=== PATIENT | female | born 1970 | race Caucasian/White ===

== ENCOUNTER 2017-01-02 15:32 | Inpatient (IN) | payer BC ==
--- NOTE | ~2017-01-02 | DS ---
Discharge Summary [facility] [address] [place]. [address] NAME: ANNEMARIE LOVING : 66 STATUS : DIS IN PAT#: [id number] AGE: 46 ADM/REG DATE : 01/02/17 MR#: [id number] REPORT SERV DATE: 01/06/17 DICTATED BY: AARON AVENDAÑO DATE: 01/05/17 REPORT STATUS : Draft TRANSCRIBED BY: MODL DATE: 01/05/17 ADMISSION DATE: 01/02/2017 DISCHARGE DATE: 01/05/2017 PRINCIPAL DIAGNOSIS: Acute right-sided pulmonary embolism. SECONDARY DIAGNOSES: Chronic jugular vein thrombus; chronic obstructive pulmonary disease; type 2 diabetes, exacerbated by steroids; obesity hypoventilation syndrome with cor pulmonale and peripheral edema; hypoxemia with respiratory failure. HISTORY OF PRESENT ILLNESS: Please see Dr. Sparks's dictation on 01/02. HOSPITAL COURSE: Admitted with acute respiratory failure with hypoxemia. Found to have evidence of a COPD exacerbation, but a CT was positive for a thrombus in the right segmental pulmonary artery. There was concern about a jugular vein thrombosis, this was confirmed on echocardiography; however, the vein was well canalized, consistent with a chronic thrombus with acute extension having likely been embolized. No lower extremity venous thrombosis was identified. The patient was heparinized. She was transitioned to Xarelto therapy. Meanwhile, her COPD got much better. She had diuresed successfully. Steroids were transitioned to p.o. While sugar remained high, this had improved as her prednisone dose had weaned. She was saturating well on her baseline oxygen prescription by 01/05 and was able to be released in satisfactory condition with a low-sodium 1800-calorie ADA diet, activity as tolerated, following up with Dr. Grey Cherry in one to two weeks. Continue Xarelto 15 b.i.d., transitioning to 20 daily after a week; Mucomyst 600 b.i.d. for a week; Lasix 40 b.i.d., she declined to transition to Demadex therapy; 10 per day; magnesium oxide 100 per day; prednisone taper; nicotine patch, but instructed not to smoke; Neurontin 600 t.i.d.; NovoLog 70/30 t.i.d.; metformin 1000 b.i.d.; Dulera; Protonix. She was taken off any further antibiotic therapy. ALLIE/MICKEY Aaron Avendaño M.D. / [id number] CC: Kaykay Foy M.D.
--- NOTE | ~2017-01-02 | HP ---
History And Physical [facility] [id number] [place]. [address] NAME: ANNEMARIE LOVING : 66 STATUS : ADM IN [facility]#: [id number] AGE: 46 ADM/REG DATE : 01/02/17 MR#: [id number] REPORT SERV DATE: 01/03/17 DICTATED BY: BROOKE BARAJAS DATE: 01/03/17 REPORT STATUS : Draft TRANSCRIBED BY: MICKEY DATE: 01/03/17 DATE OF ADMISSION: 01/02/2017 CHIEF COMPLAINT: A 46-year-old female, presenting with shortness of breath and chest pain, evidence of pulmonary embolism. HISTORY OF PRESENTING ILLNESS: The patient's history was obtained through careful interview with the patient, coupled with review of [facility] medical records. The patient states that she has been feeling bad "for couple of months" with intermittent shortness of breath and chest pain issues. She apparently was admitted to [facility] in November 2016 with what sounds like a COPD exacerbation with possible pneumonia. She was apparently in "coma" and lost memory for several days, was admitted to the intensive care unit. She was then discharged and at home for about two weeks when she became ill again, then she presented to [facility] in [place] and was admitted for "a couple of days" with what was called "a virus" in her lungs. She completed that hospital stay, but has still felt ill, and she states that over these last few days, she has had increasing shortness of breath and chest pain once again. She describes chest pain in the middle of her chest that radiates to the right side and radiates up into the right shoulder, sharp quality, 9/10 severity, exacerbated by deep breathing. She has also had early satiety with nausea, vomiting, and difficulty eating. She has had facial swelling on the left side and also the left arm has been swelling too. This has been over about a month's period of time. She has also describes swelling in her throat on the left side more than the right. No change in lower extremity edema and no lower extremity pain. No abdominal pain. No abdominal distention. No change of bowel or bladder habit. REVIEW OF SYSTEMS: Otherwise, a 14-point review of systems was obtained and was negative. PAST MEDICAL HISTORY: 1. COPD, on chronic nasal cannula oxygen. 2. Congestive heart failure. 3. Obesity hypoventilation syndrome with obstructive sleep apnea, on chronic CPAP or BiPAP. 4. DVT of the right arm "couple years" ago, but taken off blood thinner. History And Physical [address] [place]. [address] NAME: ANNEMARIE LOVING : 66 STATUS : ADM IN [facility]#: [id number] AGE: 46 ADM/REG DATE : 01/02/17 MR#: [id number] REPORT SERV DATE: 01/03/17 DICTATED BY: BROOKE BARAJAS DATE: 01/03/17 REPORT STATUS : Draft TRANSCRIBED BY: MICKEY DATE: 01/03/17 5. Diabetes with neuropathy. 6. Cor pulmonale. 7. Restless legs syndrome. 8. Iron-deficiency anemia. 9. Proteinuria. PAST SURGICAL HISTORY: 1. Breast reduction. 2. Cholecystectomy. ALLERGIES: NO KNOWN DRUG ALLERGIES. SOCIAL HISTORY: The patient is a smoker. Drinks occasional alcohol. She is , lives with daughter and son. She has three children total, many grandchildren. She lives in [place], [place]. FAMILY HISTORY: Includes heart disease, diabetes, COPD. CURRENT MEDICATIONS: Include albuterol inhaler, Symbicort two puffs inhaled twice a day, Dexilant 60 mg p.o. daily, dextromethorphan, doxycycline 100 mg p.o. b.i.d., Lasix 40 mg p.o. b.i.d., Neurontin 600 mg p.o. b.i.d., NovoLog 70/30, 80 units subcutaneously three times a day, lisinopril 20 mg p.o. daily, metformin extended release 1000 mg p.o. b.i.d., nicotine patch, Mirapex 1.5 mg p.o. daily, Zocor 20 mg p.o. daily, Spiriva inhaled daily. PHYSICAL EXAMINATION: VITAL SIGNS: Temperature 98.2, pulse 98, blood pressure 130/47, respiratory rate 18, and O2 saturation 95% on 4 L nasal cannula. GENERAL: A chronically ill-appearing female, in evidence of distress secondary to shortness of breath and described chest pain. HEENT: Pupils equal, round, and reactive to light. No conjunctival pallor. No scleral icterus. Nares are patent. Oropharynx is clear of obstruction. Moist mucous membranes. NECK: Trachea midline. No thyromegaly. LYMPH: No cervical lymphadenopathy. No supraclavicular lymphadenopathy. RESPIRATORY: Does have scattered expiratory wheezes and prolonged expiratory phase. Labored respiratory effort. No focal egophony. No rales. The patient has a labored respiratory effort. CARDIOVASCULAR: Regular rate and rhythm. No murmurs, rubs, or gallops. The patient has no lower extremity edema. There may be some slight edema nonpitting in the left upper extremity compared to the right. ABDOMEN: Soft, nontender, nondistended. Normal bowel sounds auscultated throughout. No organomegaly. The patient has a central pattern of morbid obesity. DERMATOLOGICAL: Warm and dry extremities. No pallor. No cyanosis. PSYCHIATRIC: Normal affect. Good mood. Alert and oriented x3. LABORATORY DATA: White blood cell count 9.0, hemoglobin 11.6, hematocrit 38, platelets 292. Sodium 142, potassium 3.7, chloride 102, bicarbonate 33, BUN 6, creatinine 0.6, glucose 147, brain natriuretic peptide 29. Troponin negative. INR 1.0. ABG demonstrates pH 7.39, a History And Physical [address] [address] NAME: ANNEMARIE LOVING : 66 STATUS : ADM IN [facility]#: [id number] AGE: 46 ADM/REG DATE : 01/02/17 MR#: [id number] REPORT SERV DATE: 01/03/17 DICTATED BY: BROOKE BARAJAS DATE: 01/03/17 REPORT STATUS : Draft TRANSCRIBED BY: MODL DATE: 01/03/17 PaCO2 of 43, a PaO2 of 63, and a bicarbonate of 26. STUDIES: 1. CT angiogram of the chest shows right pulmonary embolism. 2. Venous Doppler ultrasound of upper extremities apparently shows a jugular vein DVT (I believe it was reported on the left side). 3. EKG by my own evaluation shows sinus tachycardia, right bundle-branch block. ASSESSMENT AND PLAN: 1. Acute pulmonary embolism. Place on heparin drip IV. Check an echocardiogram to rule out significant right ventricular strain. 2. Jugular vein thrombosis. 3. Chronic obstructive pulmonary disease exacerbation. Place on IV Solu-Medrol, doxycycline, DuoNeb nebulizers. 4. Obesity hypoventilation syndrome. Place on nightly BiPAP. 5. Diabetes. Check hemoglobin A1c. Continue basal insulin and sliding scale insulin. KPL/MODL Brooke Barajas M.D. / [id number] CC: MD Grey Shea M.D.
[~2017-01-02 15:32] MED LIST: ALEVE220 MG PO; BEN25 PO; BENADRYL 50 MG50 MG PO; C5; COUMADIN4 MG PO; DUONEB INH; FESO4 PO; FORTAMET1000 MG PO; GLUCOPHAGE1000 MG PO; GLUCPH8 PO; HABIT21 TOP; INSNOV7030 SQ; KAPIDEX60 MG PO; L20 PO; L40 PO; MIRAPEX1 MG PO; MIRAPEX1.5 MG PO; MIRAPEX250 PO; MUCINEX600 MG PO; MUCUSRELIEF PO; NEUR300 PO; NEUR600 PO; NOVOLOGMIX; NOVOLOGMIX SC; P20 PO; PRIN20 PO; PROVENTSOL INH; PROVHFA INH; SPIRIVA INH; STERAPDS12 PO; SYMBICORT 160/41 INH INH; T PO; VIB100 PO; Z-PAK PO; ZESTRIL20 MG PO; ZITH250 PO; ZOCOR20 PO; [UNRECOGNIZED DRUG - REMARK] PO
[2017-01-02 16:40] LABS: BASOPHILS 0.1 %; BASOPHILS ABSOLUTE 0.01 10/3/uL (0.0-0.16); EOSINOPHILS 1.3 %; EOSINOPHILS ABSOLUTE 0.12 10/3/uL (0.0-0.53); ER CBC TAT 0 Hrs 05 Mins; HEMOGLOBIN 11.6 g/dL (12.0-16.0); IMMATURE GRANULOCYTES 0.2 %; IMMATURE GRANULOCYTES ABSOLUTE 0.02 10/3/uL (0.0-0.11); LYMPHOCYTES ABSOLUTE 1.88 10/3/uL (0.67-4.30); MEAN PLATELET VOLUME 9.5 fL (9.2-13.0); MONOCYTES 6.1 %; MONOCYTES ABSOLUTE 0.55 10/3/uL (0.21-1.20); NEUTROPHILS 71.3 %; NEUTROPHILS ABSOLUTE 6.37 10/3/uL (2.02-8.40); PLATELET COUNT 292 10/3/uL (150-400); RBC DISTRIBUTION WIDTH 18.5 % (12.0-16.0); RED CELL COUNT 4.52 10/6/uL (4.0-5.6)
[2017-01-02 16:41] LABS: MANUAL DIFF NO %; MEAN CORPUS HGB CONC 30.5 g/dL (32.0-36.0); MEAN CORPUSCULAR HEMOGLOB 25.7 pg (26.0-34.0); MEAN CORPUSCULAR VOLUME 84.1 fL (80-100)
[2017-01-02 16:49] LABS: PROTIME (NOT ORD) 13.5 SEC (12.0-14.5)
[2017-01-02 16:51] LABS: D-DIMER QUANTITATIVE 0.87 ug/mLFEU (< 0.50)
[2017-01-02 16:57] LABS: CALCIUM, SERUM 8.8 MG/DL (8.5-10.4); CHEST PAIN PROFILE TAT 0 Hrs 22 Mins; CHLORIDE, SERUM 102 MMOL/L (96-112); CO2 (CARBON DIOXIDE) 33 MMOL/L (24-34); GFR AFRICAN AMERICAN 125 ML/MIN (>=60); GFR NON AFRICAN AMERICAN 108 ML/MIN (>=60); SODIUM, SERUM 142 MMOL/L (135-148); TROPONIN I <0.02 NG/ML (<0.05)
[2017-01-02 17:01] LABS: BUN (BLOOD UREA NITROGEN) 6 MG/DL (6-23); GLUCOSE, SERUM 147 MG/DL (60-99); POTASSIUM, SERUM 3.7 MMOL/L (3.5-5.3)
[2017-01-02] MEDS ORDERED: MONODOX100 MG PO (20:37)
[2017-01-02] MEDS ORDERED: MUCUSRELIEF PO (20:40)
[2017-01-03 02:42] LABS: BASOPHILS 0.1 %; BASOPHILS ABSOLUTE 0.01 10/3/uL (0.0-0.16); EOSINOPHILS 0 %; HEMATOCRIT 37.2 % (36.0-48.0); HEMOGLOBIN 11.2 g/dL (12.0-16.0); IMMATURE GRANULOCYTES 0.5 %; IMMATURE GRANULOCYTES ABSOLUTE 0.04 10/3/uL (0.0-0.11); LYMPHOCYTES 11.9 %; LYMPHOCYTES ABSOLUTE 0.98 10/3/uL (0.67-4.30); MANUAL DIFF NO %; MEAN CORPUS HGB CONC 30.1 g/dL (32.0-36.0); MEAN CORPUSCULAR HEMOGLOB 25.2 pg (26.0-34.0); MEAN CORPUSCULAR VOLUME 83.6 fL (80-100); MEAN PLATELET VOLUME 9.4 fL (9.2-13.0); MONOCYTES ABSOLUTE 0.08 10/3/uL (0.21-1.20); NEUTROPHILS 86.5 %; NEUTROPHILS ABSOLUTE 7.13 10/3/uL (2.02-8.40); PLATELET COUNT 264 10/3/uL (150-400); RBC DISTRIBUTION WIDTH 17.9 % (12.0-16.0); RED CELL COUNT 4.45 10/6/uL (4.0-5.6); WHITE BLOOD CELLS 8.2 10/3/uL (4.5-10.5)
[2017-01-03 02:50] LABS: INTERNATIONAL NORMAL RATI 1.1 UNITS (-)
[2017-01-03 02:51] LABS: PARTIAL THROMBO TIME 44.5 SEC (22.5-37.2)
[2017-01-03 02:59] LABS: A/G RATIO 0.8 (0.7-1.9); ALBUMIN 2.9 G/DL (3.5-5.0); ALKALINE PHOSPHATASE 68 U/L (45-117); BUN (BLOOD UREA NITROGEN) 9 MG/DL (6-23); CALCIUM, SERUM 9.2 MG/DL (8.5-10.4); CHLORIDE, SERUM 97 MMOL/L (96-112); CO2 (CARBON DIOXIDE) 33 MMOL/L (24-34); CREATININE 0.72 MG/DL (0.55-1.02); GFR AFRICAN AMERICAN 115 ML/MIN (>=60); GFR NON AFRICAN AMERICAN 99 ML/MIN (>=60); GLOBULIN 3.7 G/DL (2.5-4.1); POTASSIUM, SERUM 3.7 MMOL/L (3.5-5.3); SGOT(AST) 13 U/L (5-40); SGPT(ALT) 44 U/L (5-65); SODIUM, SERUM 139 MMOL/L (135-148); TOTAL BILIRUBIN 0.3 MG/DL (0-1.2); TOTAL PROTEIN 6.6 G/DL (6.0-8.5); TROPONIN I <0.02 NG/ML (<0.05)
[2017-01-03 03:00] LABS: GLUCOSE, SERUM 375 MG/DL (60-99); ULTRASENSITIVE TSH 0.459 MCIU/ML (0.358-3.740)
[2017-01-04 07:53] LABS: CALCIUM, SERUM 8.7 MG/DL (8.5-10.4); CHLORIDE, SERUM 91 MMOL/L (96-112); CO2 (CARBON DIOXIDE) 37 MMOL/L (24-34); CREATININE 0.75 MG/DL (0.55-1.02); GFR AFRICAN AMERICAN 109 ML/MIN (>=60); GFR NON AFRICAN AMERICAN 94 ML/MIN (>=60); SODIUM, SERUM 137 MMOL/L (135-148)
[2017-01-04 07:54] LABS: BUN (BLOOD UREA NITROGEN) 20 MG/DL (6-23); GLUCOSE, SERUM 247 MG/DL (60-99)
[2017-01-04 12:43] LABS: HDL CHOLESTEROL 52 MG/DL (> 49); TRIGLYCERIDE 285 MG/DL (< 150)
[2017-01-04 12:52] LABS: CHOL/HDL RATIO(NOT ORDER) 4.4 (0-5); CHOLESTEROL 228 MG/DL (< 200); LDL CHOLESTEROL 119 MG/DL (< 130); NON-HDL CHOLESTEROL 176 MG/DL (< 160)
[2017-01-05 05:01] LABS: BASOPHILS 0.1 %; BASOPHILS ABSOLUTE 0.01 10/3/uL (0.0-0.16); EOSINOPHILS 0.6 %; EOSINOPHILS ABSOLUTE 0.06 10/3/uL (0.0-0.53); HEMATOCRIT 36.3 % (36.0-48.0); HEMOGLOBIN 10.8 g/dL (12.0-16.0); IMMATURE GRANULOCYTES 0.2 %; IMMATURE GRANULOCYTES ABSOLUTE 0.02 10/3/uL (0.0-0.11); INTERNATIONAL NORMAL RATI 1.3 UNITS (-); LYMPHOCYTES 28.2 %; LYMPHOCYTES ABSOLUTE 2.91 10/3/uL (0.67-4.30); MEAN CORPUS HGB CONC 29.8 g/dL (32.0-36.0); MEAN CORPUSCULAR HEMOGLOB 24.9 pg (26.0-34.0); MEAN CORPUSCULAR VOLUME 83.6 fL (80-100); MEAN PLATELET VOLUME 9.3 fL (9.2-13.0); MONOCYTES 8.1 %; MONOCYTES ABSOLUTE 0.83 10/3/uL (0.21-1.20); NEUTROPHILS 62.8 %; NEUTROPHILS ABSOLUTE 6.48 10/3/uL (2.02-8.40); PLATELET COUNT 307 10/3/uL (150-400); PROTIME (NOT ORD) 16.1 SEC (12.0-14.5); RBC DISTRIBUTION WIDTH 17.8 % (12.0-16.0); RED CELL COUNT 4.34 10/6/uL (4.0-5.6); WHITE BLOOD CELLS 10.3 10/3/uL (4.5-10.5)
[2017-01-05 05:05] LABS: MANUAL DIFF NO %
[2017-01-05 05:24] LABS: CHLORIDE, SERUM 92 MMOL/L (96-112); CO2 (CARBON DIOXIDE) 33 MMOL/L (24-34); GFR AFRICAN AMERICAN 88 ML/MIN (>=60); GFR NON AFRICAN AMERICAN 76 ML/MIN (>=60); POTASSIUM, SERUM 3.7 MMOL/L (3.5-5.3); SODIUM, SERUM 135 MMOL/L (135-148)
[2017-01-05 05:25] LABS: BUN (BLOOD UREA NITROGEN) 28 MG/DL (6-23); CALCIUM, SERUM 9.7 MG/DL (8.5-10.4); GLUCOSE, SERUM 164 MG/DL (60-99)
[2017-01-05] MEDS ORDERED: NAC 600 PO (11:15)
[2017-01-05] MEDS ORDERED: MUCINEX600 MG PO (11:17)
[2017-01-05] MEDS ORDERED: MAGOX4 PO (11:22)
[2017-01-05] MEDS ORDERED: KLOR-CON M2020 MEQ PO (11:25)
[2017-01-05] MEDS ORDERED: XARELTO15 MG PO (11:28)
[2017-01-05] MEDS ORDERED: P20 PO (11:32)
== END 2017-01-05 13:06 | disposition home or self-care (01) | DRG 176 ==
LOC: ER 15:32 → 7NO 20:42
PROVIDERS: Emergency Medicine; Internal Medicine
DX: I26.99 Other pulmonary embolism without acute cor pulmonale (principal); E11.40 Type 2 diabetes mellitus with diabetic neuropathy, unspecified; Z99.81 Dependence on supplemental oxygen; E66.2 Morbid (severe) obesity with alveolar hypoventilation; I82.C12 Acute embolism and thrombosis of left internal jugular vein; J44.1 Chronic obstructive pulmonary disease with (acute) exacerbation; Z68.43 Body mass index [BMI] 50.0-59.9, adult; G25.81 Restless legs syndrome; F17.210 Nicotine dependence, cigarettes, uncomplicated
CPT/HCPCS: 36600; 71010; 71275; 80048; 80053; 80061; 82962; 83036; 83735; 83880; 84443; 84484; 85025; 85379; 85610; 85730; 90686; 93005; 93970; 93971; 94640; 94660; 94667; 94668; 96374; 96375; 99291; A9270-GY; C8929; G0008; J1940; J2920; J2930; Q9957; Q9967

== ENCOUNTER 2017-01-26 19:41 | Emergency (ER) | payer BC ==
[~2017-01-26 19:41] MED LIST changes: +KLOR-CON M2020 MEQ PO; +MAGOX4 PO; +MONODOX100 MG PO; +NAC 600 PO; +XARELTO15 MG PO
[2017-01-26 19:55] LABS: BE (BASE EXCESS) 7.7 MEQ/L (0 +/- 2.5); CARBOXYHEMOGLOBIN 7.6 % (0-3); HCO3 (ACTUAL BICARBONATE) 34.9 MEQ/L (23-27); HEMOBLOGIN CONTENT 11.5 G/DL (12-16); INSTRUMENT SERIAL # 8087; METHEMOGLOBIN 0.2 % (0-3); OPERATOR ID 17589; PCO2 (CO2 TENSION) 63 MMHG (35-45); PO2 (O2 TENSION) 68 MMHG (79-93); SAMPLE Arterial; pH 7.36 (7.37-7.43)
[2017-01-26 19:56] LABS: ALLENS TEST Pos; DEVICE Nasal Cannula @ 5 LP
[2017-01-26 20:05] LABS: BASOPHILS 0.2 %; BASOPHILS ABSOLUTE 0.02 10/3/uL (0.0-0.16); EOSINOPHILS 1.8 %; ER CBC TAT 0 Hrs 09 Mins; HEMATOCRIT 35.4 % (36.0-48.0); HEMOGLOBIN 10.4 g/dL (12.0-16.0); IMMATURE GRANULOCYTES 0.4 %; IMMATURE GRANULOCYTES ABSOLUTE 0.04 10/3/uL (0.0-0.11); LYMPHOCYTES 23.9 %; LYMPHOCYTES ABSOLUTE 2.67 10/3/uL (0.67-4.30); MEAN CORPUS HGB CONC 29.4 g/dL (32.0-36.0); MEAN CORPUSCULAR HEMOGLOB 25.2 pg (26.0-34.0); MEAN CORPUSCULAR VOLUME 85.7 fL (80-100); MEAN PLATELET VOLUME 8.7 fL (9.2-13.0); MONOCYTES 4.9 %; MONOCYTES ABSOLUTE 0.55 10/3/uL (0.21-1.20); NEUTROPHILS 68.8 %; NEUTROPHILS ABSOLUTE 7.67 10/3/uL (2.02-8.40); PLATELET COUNT 311 10/3/uL (150-400); RBC DISTRIBUTION WIDTH 19.8 % (12.0-16.0); RED CELL COUNT 4.13 10/6/uL (4.0-5.6); WHITE BLOOD CELLS 11.2 10/3/uL (4.5-10.5)
[2017-01-26 20:07] LABS: MANUAL DIFF NO %
[2017-01-26 20:20] LABS: A/G RATIO 0.7 (0.7-1.9); ALBUMIN 3.2 G/DL (3.5-5.0); ALKALINE PHOSPHATASE 67 U/L (45-117); BUN (BLOOD UREA NITROGEN) 24 MG/DL (6-23); CALCIUM, SERUM 8.8 MG/DL (8.5-10.4); CHLORIDE, SERUM 103 MMOL/L (96-112); CO2 (CARBON DIOXIDE) 37 MMOL/L (24-34); CREATININE 1.02 MG/DL (0.55-1.02); GFR AFRICAN AMERICAN 75 ML/MIN (>=60); GFR NON AFRICAN AMERICAN 65 ML/MIN (>=60); GLOBULIN 4.4 G/DL (2.5-4.1); GLUCOSE, SERUM 115 MG/DL (60-99); POTASSIUM, SERUM 4.8 MMOL/L (3.5-5.3); SGOT(AST) 5 U/L (5-40); SGPT(ALT) 18 U/L (5-65); SODIUM, SERUM 141 MMOL/L (135-148); TOTAL BILIRUBIN 0.4 MG/DL (0-1.2); TOTAL PROTEIN 7.6 G/DL (6.0-8.5)
[2017-01-26] MEDS ORDERED: KAPIDEX60 MG PO (21:06)
[2017-01-26] MEDS ORDERED: NOVOLOGMIX SC (21:06)
[2017-01-26] MEDS ORDERED: L40 PO (21:07)
[2017-01-26] MEDS ORDERED: NEUR600 PO (21:07)
[2017-01-26] MEDS ORDERED: PRIN20 PO (21:07)
[2017-01-26] MEDS ORDERED: FORTAMET1000 MG PO (21:08)
[2017-01-26] MEDS ORDERED: MIRAPEX1.5 MG PO (21:08)
[2017-01-26] MEDS ORDERED: SYMBICORT 160/41 INH INH (21:09)
[2017-01-26] MEDS ORDERED: PROVHFA INH (21:09)
[2017-01-26] MEDS ORDERED: ZOCOR20 PO (21:09)
[2017-01-26] MEDS ORDERED: XARELTO20 MG PO (21:11)
[2017-01-26] MEDS ORDERED: MUCINEX600 MG PO (21:27)
[2017-01-26] MEDS ORDERED: SPIRIVA INH (21:27)
== END 2017-01-26 23:11 | disposition home or self-care (01) ==
LOC: ER 19:41
PROVIDERS: Hospitalist
DX: R09.02 Hypoxemia (principal); E66.01 Morbid (severe) obesity due to excess calories; R06.89 Other abnormalities of breathing; J44.9 Chronic obstructive pulmonary disease, unspecified; E11.9 Type 2 diabetes mellitus without complications; I50.9 Heart failure, unspecified; Z79.899 Other long term (current) drug therapy; Z79.84 Long term (current) use of oral hypoglycemic drugs; Z79.4 Long term (current) use of insulin
CPT/HCPCS: 36600; 71010; 80053; 82805; 85025; 87040; 87070; 87205; 93005; 94640; 99285; J0456